=== PATIENT | male | born 1925 | race Caucasian/White ===

== ENCOUNTER 2017-02-21 13:29 | Emergency (ER) | payer OTHER ==
[~2017-02-21] VITALS: Ht 160 cm; Wt 73.3 kg
[~2017-02-21 13:29] MED LIST: ASCA500 PO; BIMA0.01 OP; CHOL100010 PO; CLOP1TAB15 PO; CYCL0.052 OP; DTRSR4 PO; FINA5TAB PO; MULT-506 PO; NAPR1TAB9 PO
[2017-02-21 13:33] VITALS: TEMP 36.4; Ht 160 cm; Wt 73.3 kg
[2017-02-21 13:48] VITALS: O2SAT 93
[2017-02-21 14:47] LABS: BASO % 0.2 %; BASO ABS # 0.01 K/uL (0-0.2); COMPLETE YES; EOS % 2.6 %; HEMATOCRIT 42.8 % (42-52); IG% 0.4 %; LYMPH % 21.3 %; LYMPH ABS # 1.15 K/uL (1.2-3.4); MEAN CELL VOLUME 91.6 fL (80-100); MEAN CORPUSCULAR HEMOGLOBIN 32.5 pg (25-34); MEAN CORPUSCULAR HGB CONC 35.5 g/dl (32-36); MEAN PLATELET VOLUME 10.9 fL (7.4-10.4); MONO % 12.8 %; NEUT % 62.7 %; PLATELET COUNT 176 K/uL (130-400); RED BLOOD COUNT 4.67 M/uL (4.7-6.1)
[2017-02-21 14:48] LABS: INR 1.1 (0.9-1.1); PARTIAL THROMBOPLASTIN RATIO 1.2; PROTHROMBIN TIME (PATIENT) 11.5 SECONDS (9.0-12.0)
[2017-02-21 15:07] LABS: BUN/CREATININE RATIO 12.3 (10-20); CALCIUM 8.9 mg/dl (8.5-10.1); MAGNESIUM 2.4 mg/dl (1.8-2.4); POTASSIUM 4.3 mmol/L (3.5-5.1)
[2017-02-21 15:18] LABS: THYROID STIMULATING HORMONE 1.33 uIu/ml (0.300-4.500)
[2017-02-21] MEDS ORDERED: ASPI81TA28 PO (15:22)
[2017-02-21 15:26] LABS: LYME DISEASE AB IGG NEG (NEG)
[2017-02-21 15:29] LABS: LYME DISEASE AB IGM NEG (NEG)
--- NOTE | 2017-02-21 15:49 | DIAGNOSTIC IMAGING REPORT ---
TWO VIEW CHEST CLINICAL HISTORY: Dyspnea. Dizziness. FINDINGS: AP and lateral chest radiographs are compared to study dated 01/26/2014. The heart is enlarged. There is atherosclerotic calcification of the thoracic aorta. The pulmonary vasculature is noncongested. Chronic interstitial thickening is similar to previous. No airspace consolidation or pleural effusion is identified. There is no pneumothorax. The skeletal structures are osteopenic. Degenerative change is noted throughout the thoracic spine. IMPRESSION: Cardiac enlargement with no active disease in the chest. Electronically signed by: Rodrigo Cantu M.D. 02/21/2017 3:47 PM Dictated Date/Time: 02/21/2017 3:44 PM
[2017-02-21 16:36] LABS: URINE APPEARANCE CLEAR (CLEAR); URINE BILIRUBIN NEG (NEG); URINE COLOR YELLOW; URINE NITRITE NEG (NEG); URINE PH 6.5 (4.5-7.5); URINE SPECIFIC GRAVITY 1.011 (1.000-1.030); UROBILINOGEN NEG (NEG)
[2017-02-21 16:38] LABS: MANUAL MICROSCOPIC REQUIRED? NO; REVIEW REQ? NO
--- NOTE | 2017-02-21 16:56 | DIAGNOSTIC IMAGING REPORT ---
HEAD CTA HISTORY: EVAL FOR ANEURYSM TECHNIQUE: Multiaxial CT images of the head were performed both before and after the intravenous administration of contrast to evaluate the major cerebral vessels. Maximum intensity projection images were also obtained. COMPARISON: Head CT 01/26/2014. Brain MRI 11/04/2012. FINDINGS: There is no mass, hematoma, midline shift, or acute infarct. Periventricular white matter hypodensity is nonspecific but favors mild microvascular ischemic change. This remains unchanged. Slightly hypoplastic distal left vertebral artery. Mild narrowing within the bilateral proximal INTERNATIONAL BANK MANAGER's and supraclinoid segment of the right ICA. The left ICA, bilateral ACAs, and bilateral MCAs are widely patent. IMPRESSION: 1. No acute intracranial abnormality. 2. Mild narrowing within the proximal bilateral INTERN[employer] BANK MANAGER's and supraclinoid segment of the right ICA. 3. No aneurysm is identified. Electronically signed by: Henry Cordova M.D. 02/21/2017 4:54 PM Dictated Date/Time: 02/21/2017 4:49 PM
--- NOTE | 2017-02-21 16:58 | DIAGNOSTIC IMAGING REPORT ---
NECK CTA HISTORY: Dizziness. TECHNIQUE: Multiaxial CT images of the neck were performed following the intravenous administration of contrast to evaluate the major cervical vessels. Maximum intensity projection images were also obtained. All measurements were calculated based on NASCET criteria. COMPARISON STUDY: Carotid Doppler 01/26/2014. FINDINGS: The aortic arch and proximal great vessels are widely patent. There is no significant stenosis, occlusion, or dissection identified within the bilateral common carotid, internal carotid, or vertebral arteries. Incidental note is made of a hypoplastic left vertebral artery. The proximal right common carotid artery is partially obscured by the streak artifact from the adjacent venous contrast. Tortuous bilateral internal carotid arteries. Minimal calcified plaque within the bilateral carotid bulbs. IMPRESSION: No significant stenosis, occlusion, or dissection identified within the carotid or vertebral arteries. Electronically signed by: Henry Cordova M.D. 02/21/2017 4:57 PM Dictated Date/Time: 02/21/2017 4:54 PM
[2017-02-21 17:38] VITALS: BP 155/89; PULSE 65; O2SAT 96
--- NOTE | 2017-02-21 18:54 | EMERGENCY ROOM VISIT NOTE ---
History Report prepared by Kat: Jessica Law Under the Supervision of: Dr. Cedrick Butterfield M.D. First contact with patient: 13:44 Chief Complaint: DIZZY Stated Complaint: LIGHT HEADED - DIZZY Nursing Triage Summary: triage note: pt reports " i have been dizzy and lighthead for a couple weeks." pt reports he had ct scan, blood work and echo done last week. pt reports "i just feel weak after doing a little bit of work i just play out." pt reports intermittent headache x several weeks as well. History of Present Illness The patient is an 89 year old male who presents to the Emergency Room with complaints of intermittent lightheadedness for the past couple of weeks. He also reports shortness of breath that is worse with exertion. He has been more fatigued than usual. He has been experiencing a headache that he describes as "heaviness" in his head. The patient called his PCP and was advised to come to the ED for further evaluation. He rates his current pain as a 4/10 in severity. He had two falls last week due to his lightheadedness and he followed up with his PCP the next day. He had a CT of his head and is still waiting to hear from neurology regarding those results. The patient also had an echocardiogram that was normal. He did not have a stress test at that time. The patient denies fever , cough, chest pain, chest tightness, abdominal pain, vomiting, melena, hematochezia, and leg pain or swelling. He denies any one-sided numbness or weakness. Per son, the patient had a negative Lyme test two days ago. The patient denies any recent tick bites. Source of History: patient, family (son) Onset: a couple of weeks ago Position: other (global) Symptom Intensity: 4/10 Quality: other (lightheadedness) Timing: intermittent Modifying Factors (Worsening): exertion Associated Symptoms: + headache, + SOB, + fatigue, No fevers, No cough, No chest pain, No vomiting, No abdominal pain, No melena, No hematochezia, No weakness, No numbness Review of Systems See HPI for pertinent positives & negatives. A total of 10 systems reviewed and were otherwise negative. Past Medical & Surgical Medical Problems: (1) BPH (2) Hearing loss (3) Hernia repair (4) HISTORY OF TOBACCO USE (5) Prostate surgery (6) RIGHT SIDED WEAKNESS (7) TIA Family History Non-pertinent due to advanced age. Social History Smoking Status: Never Smoker Alcohol Use: occasionally Marital Status: Housing Status: lives alone Occupation Status: retired Current/Historical Medications Scheduled Ascorbic Acid (Vitamin C), 500 MG PO DAILY Aspirin (Aspirin Ec), 81 MG PO DAILY Bimatoprost (Lumigan), 1 DROPS OP HS Cyclosporine (Ophth) (Restasis), 1 DROP OP BID Finasteride (Proscar), 5 MG PO DAILY Multivitamin (Multivitamin), 1 TAB PO DAILY Tolterodine Tartrate (Detrol LA), 4 MG PO DAILY Allergies Coded Allergies: Sulfa Drugs (Verified Allergy, Unknown, UNKNOWN, 06/22/16) Physical Exam Vital Signs Date Time Temp Pulse Resp B/P (MAP) Pulse Ox O2 Delivery O2 Flow Rate FiO2 02/21/17 17:38 65 155/89 96 02/21/17 16:21 73 20 166/89 94 Room Air 02/21/17 15:08 69 16 13/88 95 Room Air 02/21/17 14:18 75 137/85 76 119/77 85 89/ 02/21/17 13:55 86 02/21/17 13:48 93 Room Air 02/21/17 13:33 36.4 85 18 119/82 93 Room Air Physical Exam Constitutional: Vital signs reviewed. Eyes: Pupils are equal round reactive to light. Conjunctiva are noninjected. ENT: Pharynx is clear without erythema or exudate. Mucous membranes are moist. Neck supple without meningeal signs. Respiratory: Clear to auscultation bilaterally. Breath sounds are equal bilaterally. Cardiovascular: Regular rate and rhythm. No rubs or gallops. GI: Soft, nondistended and nontender. Bowel sounds are present. Musculoskeletal: No peripheral edema. No lower extremity tenderness. Integumentary: No cyanosis. Neurological: The patient is awake and alert. Cranial nerves II-XII are intact. Motor is 5 out of 5 all extremities. Sensation is intact to light touch all extremities. Normal speech. No pronator drift. Psychiatric: Normal affect. Medical Decision & Procedures ER Provider Diagnostic Interpretation: Radiology results as stated below per my review and the radiologist's interpretation: TWO VIEW CHEST CLINICAL HISTORY: Dyspnea. Dizziness. FINDINGS: AP and lateral chest radiographs are compared to study dated 01/26/2014. The heart is enlarged. There is atherosclerotic calcification of the thoracic aorta. The pulmonary vasculature is noncongested. Chronic interstitial thickening is similar to previous. No airspace consolidation or pleural effusion is identified. There is no pneumothorax. The skeletal structures are osteopenic. Degenerative change is noted throughout the thoracic spine. IMPRESSION: Cardiac enlargement with no active disease in the chest. Electronically signed by: Rodrigo Cantu M.D. 02/21/2017 3:47 PM Dictated Date/Time: 02/21/2017 3:44 PM HEAD CTA HISTORY: EVAL FOR ANEURYSM TECHNIQUE: Multiaxial CT images of the head were performed both before and after the intravenous administration of contrast to evaluate the major cerebral vessels. Maximum intensity projection images were also obtained. COMPARISON: Head CT 01/26/2014. Brain MRI 11/04/2012. FINDINGS: There is no mass, hematoma, midline shift, or acute infarct. Periventricular white matter hypodensity is nonspecific but favors mild microvascular ischemic change. This remains unchanged. Slightly hypoplastic distal left vertebral artery. Mild narrowing within the bilateral proximal CELL MAKER's and supraclinoid segment of the right ICA. The left ICA, bilateral ACAs, and bilateral MCAs are widely patent. IMPRESSION: 1. No acute intracranial abnormality. 2. Mild narrowing within the proximal bilateral CELL MAKER's and supraclinoid segment of the right ICA. 3. No aneurysm is identified. Electronically signed by: Henry Cordova M.D. 02/21/2017 4:54 PM Dictated Date/Time: 02/21/2017 4:49 PM NECK CTA HISTORY: Dizziness. TECHNIQUE: Multiaxial CT images of the neck were performed following the intravenous administration of contrast to evaluate the major cervical vessels. Maximum intensity projection images were also obtained. All measurements were calculated based on NASCET criteria. COMPARISON STUDY: Carotid Doppler 01/26/2014. FINDINGS: The aortic arch and proximal great vessels are widely patent. There is no significant stenosis, occlusion, or dissection identified within the bilateral common carotid, internal carotid, or vertebral arteries. Incidental note is made of a hypoplastic left vertebral artery. The proximal right common carotid artery is partially obscured by the streak artifact from the adjacent venous contrast. Tortuous bilateral internal carotid arteries. Minimal calcified plaque within the bilateral carotid bulbs. IMPRESSION: No significant stenosis, occlusion, or dissection identified within the carotid or vertebral arteries. Electronically signed by: Henry Cordova M.D. 02/21/2017 4:57 PM Dictated Date/Time: 02/21/2017 4:54 PM Laboratory Results 02/21/17 14:30 Red Blood Count 4.67, Mean Corpuscular Volume 91.6, Mean Corpuscular Hemoglobin 32.5, Mean Corpuscular Hemoglobin Concent 35.5, Mean Platelet Volume 10.9, Neutrophils (%) (Auto) 62.7, Lymphocytes (%) (Auto) 21.3, Monocytes (%) (Auto) 12.8, Eosinophils (%) (Auto) 2.6, Basophils (%) (Auto) 0.2, Neutrophils # (Auto ) 3.39, Lymphocytes # (Auto) 1.15, Monocytes # (Auto) 0.69, Eosinophils # (Auto ) 0.14, Basophils # (Auto) 0.01 02/21/17 14:30 Test 02/21/17 14:30 02/21/17 14:32 02/21/17 16:20 White Blood Count 5.40 K/uL (4.8-10.8) Red Blood Count 4.67 M/uL (4.7-6.1) Hemoglobin 15.2 g/dL (14.0-18.0) Hematocrit 42.8 % (42-52) Mean Corpuscular Volume 91.6 fL (80-100) Mean Corpuscular Hemoglobin 32.5 pg (25-34) Mean Corpuscular Hemoglobin Concent 35.5 g/dl (32-36) Platelet Count 176 K/uL (130-400) Mean Platelet Volume 10.9 fL (7.4-10.4) Neutrophils (%) (Auto) 62.7 % Lymphocytes (%) (Auto) 21.3 % Monocytes (%) (Auto) 12.8 % Eosinophils (%) (Auto) 2.6 % Basophils (%) (Auto) 0.2 % Neutrophils # (Auto) 3.39 K/uL (1.4-6.5) Lymphocytes # (Auto) 1.15 K/uL (1.2-3.4) Monocytes # (Auto) 0.69 K/uL (0.11-0.59) Eosinophils # (Auto) 0.14 K/uL (0-0.5) Basophils # (Auto) 0.01 K/uL (0-0.2) RDW Standard Deviation 41.1 fL (36.4-46.3) RDW Coefficient of Variation 12.2 % (11.5-14.5) Immature Granulocyte % (Auto) 0.4 % Immature Granulocyte # (Auto) 0.02 K/uL (0.00-0.02) Prothrombin Time 11.5 SECONDS (9.0-12.0) Prothromb Time International Ratio 1.1 (0.9-1.1) Activated Partial Thromboplast Time 29.9 SECONDS (21.0-31.0) Partial Thromboplastin Ratio 1.2 Anion Gap 7.0 mmol/L (3-11) Est Creatinine Clear Calc Drug Dose 44.9 ml/min Estimated GFR () 77.0 Estimated GFR (Non- 66.4 BUN/Creatinine Ratio 12.3 (10-20) Calcium Level 8.9 mg/dl (8.5-10.1) Magnesium Level 2.4 mg/dl (1.8-2.4) Total Bilirubin 0.6 mg/dl (0.2-1) Direct Bilirubin 0.2 mg/dl (0-0.2) Aspartate Amino Transf (AST/SGOT) 12 U/L (15-37) Alanine Aminotransferase (ALT/SGPT) 21 U/L (12-78) Alkaline Phosphatase 83 U/L (45-117) Total Protein 6.8 gm/dl (6.4-8.2) Albumin 3.9 gm/dl (3.4-5.0) Thyroid Stimulating Hormone (TSH) 1.330 uIu/ml (0.300-4.500) Lyme Disease IgG Antibody NEG (NEG) Lyme Disease IgM Antibody NEG (NEG) Bedside Troponin I < 0.030 ng/ml (0-0.045) Urine Color YELLOW Urine Appearance CLEAR (CLEAR) Urine pH 6.5 (4.5-7.5) Urine Specific [place] 1.011 (1.000-1.030) Urine Protein NEG (NEG) Urine Glucose (UA) NEG (NEG) Urine Ketones NEG (NEG) Urine Occult Blood NEG (NEG) Urine Nitrite NEG (NEG) Urine Bilirubin NEG (NEG) Urine Urobilinogen NEG (NEG) Urine Leukocyte Esterase NEG (NEG) Laboratory results as reviewed by me. ECG Indication: SOB/dyspnea Rate (beats per minute): 74 Rhythm: normal sinus Findings: no acute ischemic change, no ectopy ED Course 1344: The patient was evaluated in room C11B. A complete history and physical exam was performed. 1608: I discussed the test results and prior CT scan with the patient and his family. They requested CT angiogram because of suspected aneurysm. 1709: I reassessed the patient at this time. He is feeling better and resting comfortably. I discussed the results and treatment plan with the patient and his family. I answered all pertaining questions that they had. They expressed understanding and verbalized agreement. The patient will be discharged home and will follow-up with his PCP. Medical Decision This is an 89-year-old male who presents with a two-week history of lightheadedness and shortness breath with exertion. Differential diagnosis includes anemia, pneumonia, acute coronary syndrome, metabolic derangement, Lyme disease. I did perform a limited focused review of portions of the patient 's old chart on the electronic medical record. The patient has had no recent pertinent visits to this hospital. Medication Reconciliation: I attest that I have personally reviewed the patient' s current medication list. Blood Pressure Screening: Patient was found to have normal blood pressure on screening and does not require follow-up. I did evaluate the patient as noted above. The patient is presenting with a two -week history of lightheadedness and shortness of breath with exertion. He has been evaluated by his doctor for this and had a unremarkable echocardiogram. He did fall last week and was evaluated by his doctor who ordered a CT scan. 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 IV access was established. The patient was placed on a continuous cardiac monitor technician. I did order and personally review the patient's 12-lead EKG and chest x-ray as described above. I did order and review the patient's blood work as noted in the electronic medical record. He is not anemic. Troponin is negative. I did discuss the test results with the patient and his family. They did request that I order a CT angiogram because of the CT findings. I did order a CT angiogram of the head and neck. I did review the images myself as well as the radiology report as described above. There is no evidence of aneurysm. I did discuss the test results with the patient and his family. He feels well enough for discharge. I did advise him to avoid any exertion and to follow closely with his doctor for further evaluation. He was discharged in good condition. Impression Primary Impression: Dyspnea on exertion Additional Impression: Lightheadedness Scribe Attestation The scribe's documentation has been prepared under my direct and personally reviewed by me in its entirety. I confirm that the note above accurately reflects all work, treatment, procedures, and medical decision making performed by me. Departure Information Dispostion Home / Self-Care Referrals No Doctor, Assigned (PCP) Tommy Lyman M.D. Forms HOME CARE DOCUMENTATION FORM, IMPORTANT VISIT INFORMATION Patient Instructions ED Dyspnea Shortness of Breath, [facility] Additional Instructions You have been examined and treated today on an emergency basis only. This is not a substitute for, or an effort to provide, complete comprehensive medical care. It is impossible to recognize and treat all injuries or illnesses in a single emergency department visit. It is therefore important that you follow up closely with your physician for further evaluation including possible stress testing. Call as soon as possible for an appointment. Return for worsening symptoms or if you develop fever, vomiting, chest pain or discomfort, feeling like you are going to pass out, or any other concerning symptoms. Problem Qualifiers
== END 2017-02-21 17:39 | disposition home or self-care (01) ==
LOC: C.EDB 13:31 → C.EDC 17:39
DX: R06.09 Other forms of dyspnea (principal); R42 Dizziness and giddiness; N40.0 Benign prostatic hyperplasia without lower urinary tract symptoms; Z86.73 Personal history of transient ischemic attack (TIA), and cerebral infarction without residual deficits; Z98.890 Other specified postprocedural states; Z79.82 Long term (current) use of aspirin; Z79.899 Other long term (current) drug therapy